=== PATIENT | female | born 1970 | race Caucasian/White ===

== ENCOUNTER → 2019-03-14 | Outpatient (CLI) | payer OTHER ==
--- NOTE | 2019-03-14 21:55 | Diagnostic Imaging Report ---
INDICATION: Palpable lump medial left breast. Correlation is made with a prior right mammogram from 08/08/2012. No prior left-sided mammograms are available for comparison. 2-D and 3-D bilateral diagnostic mammography was performed. The current study was also evaluated with a Computer Aided Detection (CAD) system. Right breast is heterogeneously dense, limiting the sensitivity of mammography. No mass or malignant appearing microcalcifications are seen. There is an implant in the left breast. A BB marker was placed at the area of palpable abnormality in the medial left breast. No underlying abnormality is seen. No suspicious calcifications are seen. Axillae are unremarkable. IMPRESSION: No mammographic features suspicious for malignancy are identified. Even so, sonographic interrogation of the area of palpable abnormality in the medial left breast is recommended and will be performed today. ACR BI-RADS Category 0: Incomplete. (Needs additional imaging evaluation). Result letter will be mailed to the patient. Note: At least 10% of breast cancer is not imaged by mammography. Dictated by: Dictated on workstation # [id number]
--- NOTE | 2019-03-14 22:03 | Diagnostic Imaging Report ---
INDICATION: Palpable lump in left breast. COMPARISON: Correlation is made with diagnostic mammogram from earlier the same day. EXAMINATION: Sonographic interrogation of the area of palpable abnormality in the medial left breast was performed. FINDINGS: Just below the skin surface there is an area of hypoechogenicity at the area of palpable abnormality measuring approximately 13 mm x 6 mm x 10 mm. This demonstrates vascularity along the margins. No internal vascularity is seen. No definite tract to the skin surface is identified. No other abnormality is seen. IMPRESSION: Indeterminate hypoechogenicity just below the skin surface at the area of palpable abnormality in the left breast 10 o'clock location and 10 cm from the nipple. This could represent a sebaceous cyst due to its very superficial nature. Close clinical followup to confirm stability or resolution is recommended. ACR BI-RADS Category 3: Probably benign findings. Result letter will be mailed to the patient. Note: At least 10% of breast cancer is not imaged by mammography. Dictated by: Dictated on workstation # [id number]
== END ==
LOC: RAD 13:59
PROVIDERS: ATTEND Physician Assistant Medical
DX: N63.22 Unspecified lump in the left breast, upper inner quadrant (principal); R22.2 Localized swelling, mass and lump, trunk
CPT/HCPCS: 76642; 77066